=== PATIENT | female | born 1930 | race Caucasian/White ===

== ENCOUNTER 2018-11-23 19:53 | Inpatient (IN) | payer OTHER, BC ==
[~2018-11-23] VITALS: Ht 157.5 cm; Wt 56.8 kg
[2018-11-23 20:08] VITALS: Ht 157.5 cm; Wt 56.8 kg
--- NOTE | 2018-11-23 20:17 | NUR ---
PT BROUGHT IN BY AMBULANCE FROM HOME AFTER SHE HAD A SYNCOPAL EPISODE IN WHICH SHE FELL AND IS UNKNOWN IF SHE HIT HER HEAD. ON SCENE, PT WAS FOUND TO BE COOL TO TOUCH, PALE, AND HYPOTENSIVE WITH BP 78/56. PER PARAMEDICS, EKG SHOWED RAPID AFIB. PT IS CURRENTLY AWAKE, ALERT, RESPONDS TO VERBAL STIMULI, ORIENTED TO SELF, , AND PLACE BUT NOT YEAR. PT REPORTS BEING COLD AND APPEARS TO HAVE RANDOM EPISODE OF SHORTNESS OF BREATH. DR. COREAS WAS IN FOR [facility]. WILL CONTINUE TO MONITOR CLOSELY. SAFETY PRECAUTIONS IN PLACE
--- NOTE | 2018-11-23 20:24 | NUR ---
PERSONNEL RESEARCH PSYCHOLOGIST AT BEDSIDE
--- NOTE | 2018-11-23 20:44 | NUR ---
XRAY AT BEDSIDE
[2018-11-23 20:52] LABS: BASOPHIL % 0.4 % (0-2); PLATELET COUNT 195 x10^3mcL (130-400)
[2018-11-23 20:55] LABS: RED CELL DISTRIBUTION WIDTH 23.3 % (11.5-14.5)
--- NOTE | 2018-11-23 20:57 | NUR ---
NO CHANGES TO REPORT AT THIS TIME. PT AWAKE, ALERT, RESPIRATIONS APPEAR EVEN AND UNLABORED AT THIS TIME. SENIOR REACTOR OPERATOR AT BEDSIDE. PT CURRENTLY SITTING UP IN BED WITH HOB >45. SAFETY PRECAUTIONS IN PLACE
--- NOTE | 2018-11-23 21:07 | NUR ---
PT ASSISTED ON TO BED RENAE. PT REPORTS FEELING BETTER AT THIS TIME. WILL CONTINUE TO MONITOR
[2018-11-23 21:13] LABS: rbc morphology (normal/abnorm) ABNORMAL (NORMAL)
[2018-11-23 21:14] LABS: ovalocyte/elliptocyte 1+; tear drop cell (dacryocyte) 1+
--- NOTE | 2018-11-23 21:27 | NUR ---
ERLINDA HAMMONDS. CHAPERONED BY ELVI SILVERIO. PT TOLERATED WELL. WILL CONTINUE TO MONITOR
[2018-11-23 21:32] LABS: ALKALINE PHOSPHATASE 105 U/L (46-116); ALT/SGPT 23 U/L (14-59); AST/SGOT 22 U/L (15-37); BILIRUBIN TOTAL 1.14 mg/dL (0.20-1.00); CALCIUM 9.7 mg/dL (8.5-10.1); CARBON DIOXIDE 32.8 mmol/L (21-32); CHLORIDE SERUM 98 mmol/L (98-107); CREATININE SERUM 1.6 mg/dL (0.6-1.0); GLUCOSE SERUM 150 mg/dL (74-106); MAGNESIUM 1.7 mg/dL (1.8-2.4); SODIUM SERUM 142 mmol/L (136-145); TOTAL PROTEIN, SERUM 7.2 g/dL (6.4-8.2)
[2018-11-23 21:33] LABS: ALBUMIN 2.9 g/dL (3.4-5.0); POTASSIUM SERUM 2.9 mmol/L (3.5-5.1)
--- NOTE | 2018-11-23 21:36 | NUR ---
FAMILY AT BEDSIDE. HR NOTED TO BE IN 110s. DR. COREAS MADE AWARE AND VERBALIZED TO HOLD CARDIZEM AT THIS TIME
--- NOTE | 2018-11-23 21:37 | NUR ---
DR. COREAS AT BEDSIDE SPEAKING TO FAMILY AND PATIENT
[2018-11-23 21:50] LABS: CK-MB 0.6 ng/mL (0-3.6)
[2018-11-23] MEDS ORDERED: RESTORIL15 MG PO (22:12)
[2018-11-23] MEDS ORDERED: LOP50 PO (22:12)
[2018-11-23] MEDS ORDERED: CLARITIN LIQUI-10 MG PO (22:13)
[2018-11-23] MEDS ORDERED: SINGULAIR10 MG PO (22:13)
[2018-11-23] MEDS ORDERED: SYNTHROID0.125 MG PO (22:13)
[2018-11-23] MEDS ORDERED: PROTONIX40 MG PO (22:13)
[2018-11-23] MEDS ORDERED: LIPITOR40 MG PO (22:13)
[2018-11-23 22:14] LABS: microscopic required? YES; urine erythrocyte TRACE (NEGATIVE)
[2018-11-23] MEDS ORDERED: HUMULIN N100 U/1 ML SQ (22:14)
[2018-11-23] MEDS ORDERED: LASIX80 MG PO (22:14)
[2018-11-23] MEDS ORDERED: PLA75 PO (22:14)
--- NOTE | 2018-11-23 22:47 | NUR ---
NO CHANGES TO REPORT AT THIS TIME. PT AWAKE, ALERT, RESPIRATIONS EVEN AND UNLABORED. REMAINS IN NO ACUTE DISTRESS. FAMILY AT BEDSIDE. SAFETY PRECAUTIONS IN PLACE
--- NOTE | 2018-11-23 22:53 | NUR ---
REPORT GIVEN TO SHERYL SILVERIO, ALL QUESTIONS AND CONCERNS WERE ADDRESSED
--- NOTE | 2018-11-23 22:53 | NUR ---
Total fluid resuscitation amount ordered for patient is 1000 mls. At time of admission/transfer to [facility], 150 mls have infused. Last BP was 110/70 and NUSRAT SAUCEDO is aware that BP will need to be reassessed after fluid infusion completed.
--- NOTE | 2018-11-23 23:10 | NUR ---
RECEIVED PT VIA [employer] FROM E/D, ACCOMPANIED BY RN, TRANSPORTER, AND PT'S DAUGHTER, DAVID MENA. PT A/A/O X 3 (PERSON, PLACE, PURPOSE), CALM, COOPERATIVE; WEARS GLASSES (@ HOME). PT W/ GENERALIZED WEAKNESS, BUT WAS ABLE TO AMBULATE W/ SLOW, STEADY GAIT W/ 1-PERSON ASSIST; AMBULATES W/ WALKER AT HOME; FALL RISK PROTOCOL IN PLACE. ON TELE # 4, HR 106, ST W/ BBB, DENIES CHEST PAIN OR DISCOMFORT AT THIS TIME. MISA RADIAL PULSES PRESENT, MISA PEDAL PULSES WEAK, CAP REFILL < 3 SECS, +3 PITTING EDEMA TO BLE, SCD BY BEDSIDE. WHEEZING NOTED TO QING, CHEST RISING EVENLY, 2LNC, 95%, NO ACUTE RESPIRATORY DISTRESS NOTED. VOIDS FREELY, NO DYSURIA. ECCHYMOSIS NOTED TO BUE AND LEFT BACK, AND REDNESS TO BLE W/ PAIN UPON PALPATION. IV SITE RAC 18G, CDI. ORIENTED PT AND DAUGHTER TO ROOM, BED CONTROLS, CALL LIGHT SYSTEM. SIDE RAILS UP X 2, BED IN LOW POSITION. WILL ENDORSE TO NUSRAT SAUCEDO.
[2018-11-23 23:44] VITALS: BP 108/66
--- NOTE | 2018-11-24 00:49 | NUR ---
started a new hl to the lt wrist with the site patent and intact,will continue to monitor.
--- NOTE | 2018-11-24 00:51 | NUR ---
PATIENT RESTING AT THIS TIME AND WILL CONTINUE TO MONITOR.
[2018-11-24 04:52] VITALS: BP 99/58
--- NOTE | 2018-11-24 06:00 | NUR ---
PT VIA W/C IN STABLE CONDITION TO HAVE CT SCAN DONE,NO CHANGE AT THIS TIME,HAD A RESTING NIGHT NO CHANGE AT THIS TIME,WILL CONTINUE TO MONITOR.
[2018-11-24 07:18] LABS: BASOPHIL % 0.3 % (0-2); PLATELET COUNT 188 x10^3mcL (130-400)
--- NOTE | 2018-11-24 07:20 | NUR ---
RECEIVED PATIENT RESTING BED COMFORTABLY A/0 X3, CLEAR SPEECH, DENIES CHOU OR DIZZIENSS. TELE #[address], DENIES CHEST PAIN, BREAHTING EVEN AND UNLABBORED ON ROOM AIR, DENIES SOB, NO DISTRESS NOTED. PATIENT DENIES ANY PAIN AT THIS TIME. IV TO RW H/L INTACT AND PATIENT. PATIENT IS CALM WITH CARE, INSTRUCTED TO CALL FOR ASSISTANCE IF NEEDED, SAFETY PRECAUTIONS MAINTAINED. WILL MONITOR.
[2018-11-24 07:36] LABS: RED CELL DISTRIBUTION WIDTH 23.7 % (11.5-14.5)
[2018-11-24 08:50] VITALS: BP 92/53
[2018-11-24 09:24] LABS: rbc morphology (normal/abnorm) ABNORMAL (NORMAL)
[2018-11-24 09:25] LABS: ovalocyte/elliptocyte 2+; target cell (codocyte) 1+
[2018-11-24 09:26] LABS: acanthocyte (spur cell) 1+
--- NOTE | 2018-11-24 10:25 | NUR ---
PATIENT RESTING IN BED COMFORTABLY BREATHING EVEN AND UNLABBORED NO DISTRESS NOTED. SAFETY PRECAUTIONS MAINTAINED. WILL MONITOR.
--- NOTE | 2018-11-24 10:56 | NUR ---
ROUNDS MADE- DR. MTZ, RESIDENT TEAM, CHARGE NURSE AND PRIMARY NURSE AT BEDSIDE. POC REVIEWED WITH PATIENT- PATIENT CAME IN FOR SYNCOPAL EPISODE POSSIBLY DUE TO DEHYDRATION. PER DR. MTZ WILL START PATIENT ON IVF, GET P.T EVAL, AND CONSULT OSTEOPATHY DOCTOR. PATIENT VERBALIZED UNDERSTANDING. ALL QUESTIONS AND CONCERNS ADDRESSED. DR. ALEJANDRO ALSO MADE AWARE HELD LOPRESSOR 50 MG AND LISINOPRIL 5 MG THIS MORNING DUE TO BP 92/53, MAP 65. NO FURTHER ORDERS RECEIVED. ALL NEEDS ATTENDED TO. SAFETY PRECAUTIONS MAINTAINED. WILL MONITOR.
--- NOTE | 2018-11-24 11:56 | NUR ---
PATIENTS DAUGHTER DAVID AT BEDSIDE, PATIENT RESTING COMFORTABLY IN BED, NO DISTRESS NOTED. POC REVIEWED, ALL QUESTIONS AND CONCERNS ADDRESSED. SAFETY PRECAUTIONS MAINTAINED. WILL MONITOR.
[2018-11-24 12:32] VITALS: BP 101/70
--- NOTE | 2018-11-24 13:16 | NUR ---
PATIENT RESTING COMFORTABLY IN BED, NO DISTRESS NOTED. RESUMED IVF, IV TO RW INTACT AND PATENT FREE FROM REDNESS AND INFILTRATION. ALL NEEDS ATTENDED TO. SAFETY PRECAUTIONS MAINATINED. WILL MONITOR.
[2018-11-24] MEDS ORDERED: Z5 PO ×2 (15:05→16:53)
--- NOTE | 2018-11-24 15:05 | NUR ---
PATIENT RESTING IN BED COMFORTABLY NO DISTRESS NOTED, DAUGHTER DAVID AT BEDSIDE, UPDATED PATIENTS MED REC REGARDING PATIENTS HOME MEDICATION. ALL QUESTIONS AND CONCERNS ADDRESSED. WILL MONITOR.
[2018-11-24 15:31] LABS: AMPHETAMINE QUAL UR NONE DETECTED (See below)
--- NOTE | 2018-11-24 17:09 | NUR ---
DR. ALEJANDRO AT BEDSIDE TO SPEAK WITH PATIENT AND DAUGHTER DAVID. ALL QUESTIONS AND CONCERNS ADDRESSED.
--- NOTE | 2018-11-24 18:06 | NUR ---
DR. RAYMOND AT BEDSIDE TO SPEAK WITH AND ASSESS PATIENT, DAUGHTER DAVID AT BEDSIDE. ALL QUESTIONS AND CONCERNS ADDRESSED. SAFETY PRECAUTIONS MAINTAINED.
[2018-11-24 18:12] LABS: CALCIUM 9.1 mg/dL (8.5-10.1); CARBON DIOXIDE 35.4 mmol/L (21-32); CHLORIDE SERUM 103 mmol/L (98-107); CREATININE SERUM 1.4 mg/dL (0.6-1.0); GLUCOSE SERUM 138 mg/dL (74-106); SODIUM SERUM 144 mmol/L (136-145)
[2018-11-24 18:15] LABS: POTASSIUM SERUM 2.9 mmol/L (3.5-5.1)
--- NOTE | 2018-11-24 18:17 | NUR ---
DR. ALEJANDRO PAGED AT THIS TIME REGARDING K 2.9. WILL WAIT FOR CALL BACK.
[2018-11-24 18:24] VITALS: BP 107/59
--- NOTE | 2018-11-24 18:50 | NUR ---
DR. VELASQUEZ AND DR. COATES MADE AWARE OF K 2.9-INSTRUCTED TO PAGE AND NOTIFY ASSISGNED RESIDENT. DR. ROBLERO PAGED AT THIS TIME. WILL WAIT FOR CALL BACK.
--- NOTE | 2018-11-24 19:20 | NUR ---
BEDSIDE REPORT GIVEN TO SHERYL SILVERIO, ALL QUESTIONS AND CONCERNS ADDRESSED. ALL CARES ENDORSED.
--- NOTE | 2018-11-24 19:56 | NUR ---
PT RECIEVED AAO REG RESP NO SOB,V/S STABLE,PT SITTING UP ON THE BED,IV INFUSING WELL WITH SITE PATENT AND INTACT,CALL LIGHT EASY REACHED AND WILL CONTINUE TO MONITOR.CALL LIGHT EASY REACHED AND WILL CONTINUE TO MONITOR.
[2018-11-24 20:58] VITALS: BP 116/65
--- NOTE | 2018-11-24 22:15 | NUR ---
PT RESTING AT THIS TIME,WILL CONTINUE TO MONITOR.
--- NOTE | 2018-11-25 01:18 | NUR ---
PT FORGETFUL AT TIMES AND PULL IV OUT,PT REORIENTED TO HER SURROUDINGS AND RESTARTED A NEW HL TO THE RT FOREARM WITH THE SITE PATENT AND INTACT,WILL CONTINUE TO MONITOR.
--- NOTE | 2018-11-25 02:04 | NUR ---
PT RESTING AT THIS TIME,WILL CONTINUE TO MONITOR.
[2018-11-25 06:07] VITALS: BP 108/65
--- NOTE | 2018-11-25 06:10 | NUR ---
PT REFUSED LABS TO BE DONE SAYS WANT TO GO HOME,PT HAD A RESTING NIGHT NO CHANGE AT THIS TIME,WILL CONTINUE TO MONITOR.
--- NOTE | 2018-11-25 07:10 | NUR ---
RECIEVED PT FROM NIGHT NURSE. PT IS SITTING UP ON THE SIDE OF THE BED AND LOOKS TO BE AGITATED. PT STATED THAT SHE IS BEING STARVED AND INGORED AND IS NOT BEING HELPED WHILE HER. RESPIRATIONS EVEN AND UNLABORED ON ROOM AIR. IV SITE PATENT WITH NO SIGNS OF ERYTHEMA OR SWELLING. ASKED PT IF NURSE CAN GET HER ANYTHING OR HELP OUT WITH ANYTHING AND PT STATED, "LIKE YOU CAN DO ANYTHING, YOU CAN LEAVE." ASKED PT IF I CAN GET HER ANYTHING AT THIS TIME BEFORE I COME BACK, PT STATED, "YOU CAN LEAVE, THAT'S WHAT YOU CAN DO FOR ME." INFORMED PT TO PRESS CALL LIGHT IF SHE NEEDS ANYTHING, PT STATED, "OH AND I BED YOU WILL BRING IT ON A SILVER PLATTER WON'T YOU?" BED IN LOWEST POSITION, TELE MONITOR PRESENT. CALL LIGHT WITHIN REACH. WILL CONTINUE TO MONITOR.
--- NOTE | 2018-11-25 09:00 | NUR ---
PT IS PLEASANT AT THIS TIME AND IS COOPERATIVE WITH CARE.
[2018-11-25 09:53] VITALS: BP 126/63
--- NOTE | 2018-11-25 11:30 | NUR ---
PT WALKING AROUND TO NURSING STATION STATING THAT SHE IS READY TO GO HOME AND WOULD LIKE TO SPEAK WITH HER DAUGHTER. INFORMED PT TO WAIT IN ROOM UNTIL PAPERWORK IS COMPELTED AND DAUGHTER IS HERE TO PICK HER UP. PT AGREED. PT HELPED BACK TO ROOM. AMBULATION STEADY AND SLOW. CALL LIGHT WITHIN REACH. WILL CONTINUE TO MONITOR.
--- NOTE | 2018-11-25 13:00 | NUR ---
PT IS SITTING IN BED AND IS CHANGED INTO HER CLOSED. PT STATES THAT SHE IS READY TO GO HOME AND IS ASKED THAT HER IV BE TAKEN OUT. INFORMED PT THAT WE ARE WAITING FOR THE ORDERS FROM THE DR. AND WILL INFORM HER WHEN THE DISCHARGE ORDERS ARE PUT IN. PT VERBALIZED UNDERSTANDING. CALL LIGHT WITHIN REACH. WILL CONTINUE TO MONITOR.
[2018-11-25 13:09] VITALS: BP 109/52
--- NOTE | 2018-11-25 13:15 | NUR ---
PT COMPLAINING OF PAIN TO THE BACK. PT IS REQUESTING TO HAVE TYLENOL AND STATES THAT SHE TAKES TYLENOL AT HOME AND IT WORKS WELL FOR HER. PT COMFORTABLE IN BED. WILL MEDICATE ACCORDING TO EMAR.
[2018-11-25] MEDS ORDERED: LASIX40 MG PO (14:58)
[2018-11-25 15:13] VITALS: BP 109/52
--- NOTE | 2018-11-25 15:23 | NUR ---
PHYSICAL THERAPY DAILY NOTES CO-SIGN All documentation done by the Bicycle Mechanic for 11/25/18 has been reviewed. I agree with the documentation. Reviewed/Co-Signed by: Maryanne San PT Documentation Done by:RADHA MELENDREZ PTA
--- NOTE | 2018-11-25 16:42 | NUR ---
PT AWAKE, ALERT AND ORIENTED AT TIME OF DISCHARGE. PT LOOKS TO BE IN NO ACUTE DISTRESS AT THIS TIME AND DENIES ANY PAIN. PT DISCHARGED HOME AND WENT TO LOBBY VIA WHEELCHAIR ACCOMPANIED BY FAMILY MEMBER AND NURSE WITH BELONGINGS IN HAND. PROVIDED EDUCATION, PRESCRIPTION AND SUMMARY OF HOSPITAL STAY TO PT. PT VERBALIZED UNDERSTANDING OF EDUCATION. PT ALSO INFORMED OF FOLLOW UP APPOINTMENT, PT VERBALIZED UNDERSTANDING. IV REMOVED AND IV CATHETER FULLY INTACT. ALL QUESTIONS AND CONCERNS ADDRESSED.
== END 2018-11-25 16:21 | disposition home health service (06) | DRG 314 ==
LOC: ED 19:53 → DU 22:01 → MU 11-25 13:56
PROVIDERS: Emergency Medicine; Internal Medicine; ADMIT Internal Medicine
DX: I95.9 Hypotension, unspecified (principal); N17.0 Acute kidney failure with tubular necrosis; E44.0 Moderate protein-calorie malnutrition; J45.901 Unspecified asthma with (acute) exacerbation; C90.01 Multiple myeloma in remission; E87.4 Mixed disorder of acid-base balance; E86.0 Dehydration; R55 Syncope and collapse; I50.9 Heart failure, unspecified; E11.65 Type 2 diabetes mellitus with hyperglycemia; I48.2 Chronic atrial fibrillation; E87.6 Hypokalemia; E83.42 Hypomagnesemia; E89.0 Postprocedural hypothyroidism; Z95.2 Presence of prosthetic heart valve; Z95.5 Presence of coronary angioplasty implant and graft; Z79.84 Long term (current) use of oral hypoglycemic drugs
CPT/HCPCS: 36600; 82962; 83880; 84439; 97116-GP; 97530-GP; G0378; J0696; J1815; J1940; J3475; J3480; J3490; J7030; Q0092

== ENCOUNTER 2018-12-03 06:34 | Emergency (ER) | payer OTHER, BC ==
[~2018-12-03] VITALS: Ht 157.5 cm; Wt 56.8 kg
[~2018-12-03 06:34] MED LIST: CLARITIN LIQUI-10 MG PO; HUMULIN N100 U/1 ML SQ; LASIX40 MG PO; LASIX80 MG PO; LIPITOR40 MG PO; LOP50 PO; PLA75 PO; PROTONIX40 MG PO; RESTORIL15 MG PO; SINGULAIR10 MG PO; SYNTHROID0.125 MG PO; Z5 PO
[2018-12-03 07:15] LABS: BASOPHIL % 0.2 % (0-2); PLATELET COUNT 187 x10^3mcL (130-400)
[2018-12-03 07:16] LABS: RED CELL DISTRIBUTION WIDTH 24.9 % (11.5-14.5)
[2018-12-03 07:27] LABS: CALCIUM 9.6 mg/dL (8.5-10.1); CARBON DIOXIDE 22.6 mmol/L (21-32); CHLORIDE SERUM 106 mmol/L (98-107); CREATININE SERUM 1.5 mg/dL (0.6-1.0); GLUCOSE SERUM 190 mg/dL (74-106); POTASSIUM SERUM 4.1 mmol/L (3.5-5.1); SODIUM SERUM 142 mmol/L (136-145)
[2018-12-03 07:32] LABS: ALBUMIN 3.4 g/dL (3.4-5.0); ALKALINE PHOSPHATASE 106 U/L (46-116); ALT/SGPT 45 U/L (14-59); AST/SGOT 46 U/L (15-37); BILIRUBIN TOTAL 0.73 mg/dL (0.20-1.00); LIPASE 54 IU/L (73-393); TOTAL PROTEIN, SERUM 7.7 g/dL (6.4-8.2)
[2018-12-03 08:00] LABS: ovalocyte/elliptocyte 1+; tear drop cell (dacryocyte) 1+
[2018-12-03 08:01] LABS: rbc morphology (normal/abnorm) ABNORMAL (NORMAL); target cell (codocyte) 1+
[2018-12-03 09:29] LABS: UA SPECIFIC GRAVITY 1.025 (1.005-1.035); microscopic required? YES; urine erythrocyte 1+ (NEGATIVE)
[2018-12-03 10:38] VITALS: BP 124/69
== END 2018-12-03 10:38 | disposition home or self-care (01) ==
LOC: ED 06:34
PROVIDERS: Emergency Medicine
DX: M54.5 Low back pain (principal); G89.29 Other chronic pain; K80.50 Calculus of bile duct without cholangitis or cholecystitis without obstruction; E11.22 Type 2 diabetes mellitus with diabetic chronic kidney disease; N18.4 Chronic kidney disease, stage 4 (severe); I50.9 Heart failure, unspecified; Z85.830 Personal history of malignant neoplasm of bone; Z95.2 Presence of prosthetic heart valve
CPT/HCPCS: 36415

== ENCOUNTER 2019-02-23 15:28 | Inpatient (IN) | payer OTHER, BC ==
[~2019-02-23] VITALS: Ht 160 cm; Wt 57.1 kg
[2019-02-23] VITALS (7 sets, daily range): BP systolic 82–97; BP diastolic 43–50
[2019-02-23 16:32] LABS: BASOPHIL % 0.2 % (0-2); PLATELET COUNT 162 x10^3mcL (130-400)
[2019-02-23 16:35] LABS: RED CELL DISTRIBUTION WIDTH 29.2 % (11.5-14.5)
[2019-02-23 16:48] LABS: ALKALINE PHOSPHATASE 209 U/L (46-116); ALT/SGPT 46 U/L (14-59); AST/SGOT 60 U/L (15-37); BILIRUBIN TOTAL 2.7 mg/dL (0.20-1.00); CALCIUM 8.6 mg/dL (8.5-10.1); CARBON DIOXIDE 11.3 mmol/L (21-32); CHLORIDE SERUM 103 mmol/L (98-107); CREATININE SERUM 2.6 mg/dL (0.6-1.0); GLUCOSE SERUM 109 mg/dL (74-106); SODIUM SERUM 136 mmol/L (136-145); TOTAL PROTEIN, SERUM 6.9 g/dL (6.4-8.2)
[2019-02-23 17:01] LABS: ALBUMIN 2.5 g/dL (3.4-5.0)
[2019-02-23 17:03] LABS: POTASSIUM SERUM 5.6 mmol/L (3.5-5.1)
[2019-02-23 17:08] LABS: rbc morphology (normal/abnorm) ABNORMAL (NORMAL)
[2019-02-23 17:09] LABS: burr cell (echinocyte) 2+; ovalocyte/elliptocyte 1+
[2019-02-23 19:08] LABS: CHOLESTEROL/HDL RATIO 5.5; PHOSPHOROUS 5.9 mg/dL (2.5-4.9)
[2019-02-23 19:11] LABS: UA SPECIFIC GRAVITY >=1.030 (1.005-1.035); microscopic required? YES; urine erythrocyte TRACE (NEGATIVE)
[2019-02-23 19:20] LABS: AMPHETAMINE QUAL UR NONE DETECTED (See below)
[2019-02-23 22:16] LABS: CHLORIDE SERUM 105 mmol/L (98-107); CREATININE SERUM 2.8 mg/dL (0.6-1.0); GLUCOSE SERUM 91 mg/dL (74-106); SODIUM SERUM 139 mmol/L (136-145)
[2019-02-23 22:43] LABS: POTASSIUM SERUM 6.3 mmol/L (3.5-5.1)
[2019-02-24] VITALS (14 sets, daily range): BP systolic 64–101; BP diastolic 30–55; Ht 160 cm; Wt 57.1 kg
[2019-02-24 05:11] LABS: BASOPHIL % 0.1 % (0-2); PLATELET COUNT 143 x10^3mcL (130-400)
[2019-02-24 05:13] LABS: RED CELL DISTRIBUTION WIDTH 29.1 % (11.5-14.5)
[2019-02-24 05:34] LABS: CALCIUM 8.1 mg/dL (8.5-10.1); CARBON DIOXIDE 18.2 mmol/L (21-32); CHLORIDE SERUM 107 mmol/L (98-107); CREATININE SERUM 2.9 mg/dL (0.6-1.0); GLUCOSE SERUM 144 mg/dL (74-106); POTASSIUM SERUM 5.5 mmol/L (3.5-5.1); SODIUM SERUM 142 mmol/L (136-145)
[2019-02-24 05:47] LABS: PHOSPHOROUS 8.7 mg/dL (2.5-4.9)
[2019-02-24 05:49] LABS: ALBUMIN 2.3 g/dL (3.4-5.0)
[2019-02-24 13:19] LABS: CARBON DIOXIDE 14.3 mmol/L (21-32); CHLORIDE SERUM 103 mmol/L (98-107); CREATININE SERUM 3.4 mg/dL (0.6-1.0); GLUCOSE SERUM 187 mg/dL (74-106); SODIUM SERUM 140 mmol/L (136-145)
[2019-02-24 13:23] LABS: POTASSIUM SERUM 5.6 mmol/L (3.5-5.1)
== END 2019-02-24 22:59 | disposition expired | DRG 871 ==
LOC: ED 15:28 → IC 18:44
PROVIDERS: Emergency Medicine; Internal Medicine; Internal Medicine Nephrology; ADMIT Internal Medicine
PROC: 5A1935Z Respiratory Ventilation, Less than 24 Consecutive Hours (ICD-10-PCS; principal; 2019-02-23)
PROC: 0BH17EZ Insertion of Endotracheal Airway into Trachea, Via Natural or Artificial Opening (ICD-10-PCS; 2019-02-23)
PROC: 05HM33Z Insertion of Infusion Device into Right Internal Jugular Vein, Percutaneous Approach (ICD-10-PCS; 2019-02-24)
PROC: 04HY32Z Insertion of Monitoring Device into Lower Artery, Percutaneous Approach (ICD-10-PCS; 2019-02-24)
DX: A41.9 Sepsis, unspecified organism (principal); N17.0 Acute kidney failure with tubular necrosis; E43 Unspecified severe protein-calorie malnutrition; J96.01 Acute respiratory failure with hypoxia; R65.21 Severe sepsis with septic shock; E87.2 Acidosis; J45.901 Unspecified asthma with (acute) exacerbation; D68.9 Coagulation defect, unspecified; C90.01 Multiple myeloma in remission; Z68.1 Body mass index [BMI] 19.9 or less, adult; N18.4 Chronic kidney disease, stage 4 (severe); B99.9 Unspecified infectious disease; R57.1 Hypovolemic shock; I12.9 Hypertensive chronic kidney disease with stage 1 through stage 4 chronic kidney disease, or unspecified chronic kidney disease; E11.22 Type 2 diabetes mellitus with diabetic chronic kidney disease; E11.65 Type 2 diabetes mellitus with hyperglycemia; E83.42 Hypomagnesemia; I48.91 Unspecified atrial fibrillation; E87.5 Hyperkalemia; E83.39 Other disorders of phosphorus metabolism; R74.0 Nonspecific elevation of levels of transaminase and lactic acid dehydrogenase [LDH]; E03.9 Hypothyroidism, unspecified; Z95.2 Presence of prosthetic heart valve; Z99.81 Dependence on supplemental oxygen; Z79.84 Long term (current) use of oral hypoglycemic drugs; Z66 Do not resuscitate
CPT/HCPCS: 36556; 36600; 82962; 83880; A4628; C9113; G0378; J0282; J0696; J1642; J1720; J2001; J2250; J2270; J2370; J2543; J3010; J3370; J3490; J7030; J7040; J7060; J7120; J7620; Q0092